=== PATIENT | male | born 1955 | race Caucasian/White ===

== ENCOUNTER 2021-07-25 14:26 | Outpatient (CLI) | payer MEDICARE, SELFPAY ==
--- NOTE | 2021-07-25 14:37 | XR_ITS ---
WS: [id number] LEFT HIP HISTORY: LEFT HIP JOINT PAIN COMPARISON: None available. LEFT hip: No acute fracture or dislocation. Moderate narrowing of the superior margin of the hip join t. Sclerosis and cortical irregularity along the superior acetabular margin. There is also very sligh t irregularity in the cortex overlying the superior femoral head. No fracture. No soft tissue abnormality. XR/XR hip LT 2-3V wo/w pel* [id number] IMPRESSION: 1. No hip fracture. 2. Moderate osteoarthritic changes involving the superior acetabular margin of the LEFT hip joint.
== END 2021-07-25 14:27 | disposition home or self-care (01) ==
PROVIDERS: PCP Clinical Nurse Specialist Adult Health; Visit Provider Clinical Nurse Specialist Adult Health
DX: M25.552 Pain in left hip (principal)
CPT/HCPCS: 73502

== ENCOUNTER → 2021-11-13 07:45 | Outpatient (BNVA) | payer MEDICARE, SELFPAY | PROVIDERS: PCP Clinical Nurse Specialist Adult Health; Visit Provider Clinical Nurse Specialist Adult Health | DX: R73.9 Hyperglycemia, unspecified (principal); Z12.5 Encounter for screening for malignant neoplasm of prostate | CPT/HCPCS: 83036; 84153 ==

== ENCOUNTER → 2023-02-08 09:24 | Outpatient (BNVA) | payer MEDICARE, SELFPAY | PROVIDERS: PCP Clinical Nurse Specialist Adult Health; Visit Provider Clinical Nurse Specialist Adult Health | DX: I10 Essential (primary) hypertension (principal) | CPT/HCPCS: 80053; 80061; 85025 ==

== ENCOUNTER 2023-03-05 08:34 | Emergency (ER) | payer MEDICARE, SELFPAY ==
[2023-03-05 08:47] VITALS: BP 151/93; PULSE 94; RESP 18; TEMP 36.8; O2SAT 97
--- NOTE | 2023-03-05 08:51 | CT_ITS ---
WS: [id number] CT HEAD TECHNIQUE: Noncontrast CT of the head obtained from the skullbase to the vertex. CLINICAL INFORMATION: headache, sweating, nausea COMPARISON: None. DLP: 1038.[address] scans at [facility] use at least one of these dose optimization techniques: automated e xposure control; mA and/or kV adjustment per patient size (includes targeted exams where dose is matc hed to clinical indication); or iterative reconstruction. FINDINGS: No evidence of intracranial hemorrhage or mass effect. Ventricular system and basal cisterns are soares nt. Mild small vessel changes with mild parenchymal volume loss. No extra-axial fluid collections. No evidence of mass or mass effect. Vascular calcification. Incidental slightly low-lying cerebellar to nsils. Paranasal sinuses and mastoid air cells are well aerated. .Normal visualized soft tissues. IMPRESSION: 1. No evidence of intracranial hemorrhage or mass effect. 2. No acute intracranial findings.
--- NOTE | 2023-03-05 08:54 | W.ED.HA ---
HPI - Headache General: Chief Complaint: Headache Stated Complaint: headache Time Seen by Provider: 03/05/23 08:35 Source: patient Mode of arrival: ambulatory Limitations: no limitations History of Present Illness: Patient is a very nice 68-year-old male presents to ED today with a complaint of a headache. He states he first noticed the headache 3 weeks ago after being outside stating that he got way too hot . Patient states ever since then he has had an 8 out of 10 constant unchanging headache located to his occipital and frontal region. Patient denies any alleviating or exacerbating factors to his headache. He states he occasionally will become sweaty and feel nauseous. He has not had any visual changes. No vomiting. He feels like speech and ambulation/gait are normal. Has not noticed any numbness, tingling, weakness to his extremities. He does have a history of hypertension but this seems to be fairly controlled on his medications. He is not having any abdominal pain. No racing heart rate/palpitations. Even though he rates his headache at an 8/10 he states the pain has not prevented him from any normal daily activities. MD elicited complaint: headache Pertinent past history: hypertension Onset (ago): week(s) Location: frontal and occipital Severity: severe Pain scale (0-10): 8 Exacerbating factors: none Relieving factors: nothing Associated symptoms: Reports nausea and other (sweating); Deny chest pain, confusion, fever(s), lightheadedness, malaise, pre-syncope, rash, syncope or vomiting Treatments prior to arrival: acetaminophen Review of Systems Const: Reports: other (occasional sweating); Denies: fever(s), chills, body aches, fatigue or malaise Eyes: Denies: change in vision, blurry vision, blind spots, photophobia, floaters or seeing flashes ENMT: Denies: throat pain, odynophagia, ear or mastoid pain, nasal discharge, nasal congestion or sinus pain Card: Denies: chest pain, palpitations, lightheadedness, syncope or pre-syncope Resp: Denies: dyspnea GI: Reports: nausea; Denies: abdominal pain, vomiting or diarrhea : Denies: flank pain, difficulty urinating, dysuria, urinary frequency or urinary urgency Musc: Denies: neck pain, back pain, extremity pain or joint pain Skin/Breast: Denies: rash Neuro: Reports: headache(s); Denies: numbness in extremities, weakness in extremities, sensory changes, lack of coordination, difficulty walking, frequent falls, dizziness, vertigo, confusion, behavioral changes, Slurred speech present, difficulty communicating thoughts or seizure-like activity PFS ED PFSH: Medical History Essential hypertension Frequency of urination Generalized osteoarthritis Seasonal allergies Surgical History No pertinent past surgical history Family History Other CAD (coronary artery disease) Diabetes Prostate cancer Social History Smoking and tobacco status: never smoked Alcohol intake: current Alcohol intake frequency: 3 or more drinks per day Alcohol type: beer Substance/Drug Use: never Marital status: Current occupational status: employed Current occupation: [employer] Physical Exam Const: COMMON NORMALS: no acute distress, average body habitus, patient oriented x3, no limitations, healthy appearing, alert and well nourished GENERAL APPEARANCE: cooperative ORIENTATION/CONSCIOUSNESS: Yes awake, Yes oriented to person, Yes oriented to place and Yes oriented to time HENMT: COMMON NORMALS: normocephalic, atraumatic, hearing grossly normal bilaterally, external ears normal, EAC's normal, TM's normal bilaterally and oropharynx normal HEAD & SCALP: normal to inspection, normocephalic and atraumatic FACE & SINUS: normal facial exam EXTERNAL EAR: Yes external ears normal EXTERNAL AUDITORY CANAL: EAC's normal TYMPANIC MEMBRANE: TM's normal bilaterally Eye: COMMON NORMALS: Equal, round and reactive pupils present and EOMs intact bilaterally GENERAL EYE: appearance normal, both eyes and all related structures and normal light reflex VISUAL ZARATE: No peripheral vision loss and No central vision loss PUPIL: Yes Equal, round and reactive pupils present DIRECT OPHTHALMOSCOPY: Yes normal light reflex Neck/C-Spine: COMMON NORMALS: full ROM, no lymphadenopathy, supple and no meningeal signs Resp: COMMON NORMALS: normal respiratory effort and clear to auscultation bilaterally AUSCULTATION: clear to auscultation bilaterally Cardio: COMMON NORMALS: regular rate and regular rhythm RATE: regular rate RHYTHM: regular rhythm Back/Pelvis: COMMON NORMALS: thoracic and lumbar spine normal to inspection, no thoracic nor lumbar tenderness and thoraco-lumbar ROM normal Extremity: COMMON NORMALS: normal to inspection GENERAL: Yes normal exam except as noted Neuro: SHARITA COMA SCALE: document GCS findings Sharita coma scale eye opening: Spontaneous Sharita coma scale verbal response: Orientated [place] coma scale motor response: Obey commands Sharita coma scale total score: 15 COMMON NORMALS: patient oriented x3, CN's II-XII intact bilaterally, moves all extremities, no focal motor deficits, no sensory deficits noted and gait normal SENSORIUM/ORIENTATION: Yes alert, Yes oriented to person, Yes oriented to place and Yes oriented to time MENINGEAL SIGNS: Yes no meningeal signs COORDINATION/BALANCE: [id number] test normal and [id number] test normal SPEECH: speech normal GAIT: Yes Normal gait present MOTOR EXAM: 5/5 motor strength present throughout COORDINATION: [id number] test normal and [id number] test normal Skin: COMMON NORMALS: no rashes or lesions noted GENERAL SKIN EXAM: no rashes or lesions noted Course Vital Signs: Vital signs: Vital Signs Temperature 98.2 F 03/05/23 08:47 Pulse Rate 80 03/05/23 11:14 Respiratory Rate 18 03/05/23 08:47 Blood Pressure 147/82 03/05/23 11:14 Pulse Oximetry 97 03/05/23 11:14 Oxygen Delivery Me thod Room Air 03/05/23 09:46 MDM - Headache Medical Decision Making Patient has a normal neurologic exam here. After medications he is currently rating his headache at a 1-2/10. Patient's vital signs are stable. Blood work is unremarkable. CT imaging is negative. Due to patient's age and 3-week history of new onset headache along with nausea and sweatiness I would like him to follow-up with his primary care provider for further evaluation of symptoms. Patient is agreeable to this. Return to ED precautions given. Lab Data 03/05/23 09:02 03/05/23 09:02 Laboratory Results WBC 8.80 10^3/uL (3.29-11.43) 03/05/23 09:02 RBC 5.32 10^6/uL (3.85-5.65) 03/05/23 09:02 Hgb 16.70 g/dL (11.27-16.99) 03/05/23 09:02 Hct 49.1 % (37-53) 03/05/23 09:02 MCV 92.3 fl (82-101) 03/05/23 09:02 MCH 31.4 pg (27-33) 03/05/23 09:02 MCHC 34.0 g/dL (30-55) 03/05/23 09:02 RDW 11.9 % (12.1-15.1) L 03/05/23 09:02 Plt Count 302 10^3/cmm (157-399) 03/05/23 09:02 MPV 9.3 fL (7.4-10.4) 03/05/23 09:02 Neut % (Auto) 64.0 % 03/05/23 09:02 Lymph % (Auto) 28.1 % 03/05/23 09:02 [place] % (Auto) 6.4 % 03/05/23 09:02 Eos % (Auto) 0.9 % 03/05/23 09:02 Baso % (Auto) 0.3 % 03/05/23 09:02 Neut # (Auto) 5.63 10^3/uL (1.8-7.7) 03/05/23 09:02 Lymph # (Auto) 2.5 10^3/uL (0.8-4.8) 03/05/23 09:02 [place] # (Auto) 0.6 10^3/uL (0.2-0.9) 03/05/23 09:02 Eos # (Auto) 0.1 10^3/uL (0.0-0.8) 03/05/23 09:02 Baso # (Auto) 0.0 10^3/uL (0.0-0.1) 03/05/23 09:02 Nucleated RBC % (auto) 0 % 03/05/23 09:02 Nucleated RBCs # 0.0 /100WBC 03/05/23 09:02 Sodium 136 mmol/L (136-145) 03/05/23 09:02 Potassium 4.5 mmol/L (3.5-5.1) 03/05/23 09:02 Chloride 101 mmol/L (98-107) 03/05/23 09:02 Carbon Dioxide 26 mmol/L (22-29) 03/05/23 09:02 Anion Gap 13.5 (5-19) 03/05/23 09:02 BUN 14 mg/dL (8-23) 03/05/23 09:02 Creatinine 0.9 mg/dL (0.7-1.2) 03/05/23 09:02 GFR Calculation 83.7 mL/min (90-130) L 03/05/23 09:02 Glucose 98 mg/dL (65-115) 03/05/23 09:02 Calculated Osmolality 282 mOsm/kg (285-295) L 03/05/23 09:02 Calcium 9.7 mg/dL (8.5-10.5) 03/05/23 09:02 Total Bilirubin 0.3 mg/dL (0.15-1.2) 03/05/23 09:02 AST 15 U/L (0-40) 03/05/23 09:02 ALT 20 U/L (0-41) 03/05/23 09:02 Alkaline Phosphatase 60 U/L (40-130) 03/05/23 09:02 Total Protein 7.5 g/dL (6.6-8.7) 03/05/23 09:02 Albumin 4.8 g/dL (3.5-5.2) 03/05/23 09:02 Globulin 2.7 g/dL (1.3-4.6) 03/05/23 09:02 Urine Color Straw (Yellow) 03/05/23 09:18 Urine Appearance Clear (CLEAR) 03/05/23 09:18 Urine pH 7 (5-7) 03/05/23 09:18 Ur Specific [place] 1.000 (1.005-1.030) L 03/05/23 09:18 Urine Protein Neg (Negative) 03/05/23 09:18 Urine Glucose (UA) Norm (Normal) 03/05/23 09:18 Urine Ketones Negative (Negative) 03/05/23 09:18 Urine Blood Neg (Negative) 03/05/23 09:18 Urine Nitrate Negative (Negative) 03/05/23 09:18 Urine Bilirubin Neg (Negative) 03/05/23 09:18 Urine Urobilinogen Norm mg/dL (Negative) 03/05/23 09:18 Ur Leukocyte Esterase Negative (Negative) 03/05/23 09:18 Discharge Plan Discharge Patient Disposition: Home Clinical Impression: Headache Qualifiers: Headache type: unspecified Headache chronicity pattern: acute headache Intractability: not intractable Qualified Code(s): R51.9 - Headache, unspecified Condition: Stable Prescriptions: No Action super beta prostate 1 cap PO DAILY cetirizine 10 mg tablet 10 mg PO DAILY PRN (Reason: Allergic Symptoms) losartan 25 mg tablet 25 mg PO DAILY Qty: 90 3RF celecoxib 100 mg capsule 100 mg PO DAILY Qty: 90 3RF Discharge Orders: Discharge ED (Routine); Ordered 03/05/23 Ordered By: Gayla Brannon Referrals: Martell Hermosillo NP [Primary Care Provider] - Patient Instructions: Headache, Acute Headache (DC) Activity Restrictions/Additional Instructions: As we discussed I would like you to follow-up with your primary care provider within the week to further assess and evaluate your headache. Coding Level of Care Code ED Medication Specialist for Darren Barragan
[2023-03-05] MEDS: sodium chloride 0.9% 1,000 ML 999 ML IV (09:07)
[2023-03-05 09:12] LABS: Basophils % 0.3 %; Eosinophils # 0.1 10^3/uL (0.0-0.8); Eosinophils % 0.9 %; Hematocrit 49.1 % (37-53); Lymphocytes # 2.5 10^3/uL (0.8-4.8); Lymphocytes % 28.1 %; Mean Corpuscular Hemoglobin 31.4 pg (27-33); Mean Corpuscular Volume 92.3 fl (82-101); Mean Platelet Volume 9.3 fL (7.4-10.4); Monocytes # 0.6 10^3/uL (0.2-0.9); Monocytes % 6.4 %; Neutrophils # 5.63 10^3/uL (1.8-7.7); Nucleated Red Blood Cells % 0 %; Platelet Count 302 10^3/cmm (157-399); Red Blood Count 5.32 10^6/uL (3.85-5.65); Red Cell Distribution Width 11.9 % (12.1-15.1)
[2023-03-05 09:30] LABS: Add Urine Microscopic? NO; Charge for UA Resulting for Rev
[2023-03-05 09:33] LABS: Bilirubin Urine Neg (Negative); Blood Urine Neg (Negative); Glucose Urine UA Norm (Normal); Ketones Urine Negative (Negative); Leukocyte Esterase Urine Negative (Negative); Nitrate Urine Negative (Negative); Protein Urine Neg (Negative); Urine Appearance Clear (CLEAR); Urine Color Straw (Yellow); Urobilinogen Urine Norm (Negative); pH Urine 7 (5-7)
[2023-03-05 09:33] LABS: Alanine Aminotransferase 20 U/L (0-41); Albumin Level 4.8 g/dL (3.5-5.2); Alkaline Phosphatase 60 U/L (40-130); Anion Gap 13.5 (5-19); Aspartate Amino Transferase 15 U/L (0-40); Blood Urea Nitrogen 14 mg/dL (8-23); Calcium 9.7 mg/dL (8.5-10.5); Carbon Dioxide 26 mmol/L (22-29); Chloride 101 mmol/L (98-107); Globulin 2.7 g/dL (1.3-4.6); Glomerular Filtration Rate 83.7 mL/min (90-130); Glucose 98 mg/dL (65-115); Osmolality Calculated 282 mOsm/kg (285-295); Potassium 4.5 mmol/L (3.5-5.1); Sodium 136 mmol/L (136-145); Total Bilirubin 0.3 mg/dL (0.15-1.2); Total Protein 7.5 g/dL (6.6-8.7)
[2023-03-05] MEDS: diphenhydrAMINE 50 mg/mL SDV 1mL 25 MG IVP (09:38)
[2023-03-05] MEDS: ondansetron 2 mg/ML SDV 2 mL 4 MG IVP (09:38)
[2023-03-05] MEDS: dexamethasone 10 mg/mL INJ 6 MG IVP (09:40)
[2023-03-05 09:46] VITALS: BP 151/93; PULSE 83; O2SAT 98
[2023-03-05 11:14] VITALS: BP 147/82; PULSE 80; O2SAT 97
== END 2023-03-05 11:26 | disposition home or self-care (01) ==
PROVIDERS: Emergency Provider Physician Assistant; PCP Clinical Nurse Specialist Adult Health
DX: R51.9 Headache, unspecified (principal); I10 Essential (primary) hypertension
CPT/HCPCS: 70450; 80053; 81003; 85025; 96361; 96374; 96375; 99285; J1100; J1200; J2405; J7030

== ENCOUNTER → 2024-01-31 07:46 | Outpatient (BNVA) | payer MEDICARE, SELFPAY | PROVIDERS: PCP Clinical Nurse Specialist Adult Health; Visit Provider Clinical Nurse Specialist Adult Health | DX: Z00.01 Encounter for general adult medical examination with abnormal findings (principal); I10 Essential (primary) hypertension | CPT/HCPCS: 80053; 80061; 84443; 85025 ==